=== PATIENT | female | born 1960 | race Caucasian/White ===

== ENCOUNTER → 2018-07-24 | Outpatient (CLI) | payer BC ==
[~2018-07-24] MED LIST: HCT25T PO; KETO-22 PO; METO100T PO; MULT-963 PO; VIT B12 PO; VIT1TABL93 PO
--- NOTE | 2018-07-24 20:24 | Diagnostic Imaging Report ---
EXAMINATION: Sacroiliac Joints. INDICATION: Pain. Three views were obtained. There are no prior studies available for comparison. FINDINGS: There is no fracture, dislocation, or acute bony abnormality evident. On the AP view there is a vague linear lucency extending obliquely through the left sacrum. This is not evident on the oblique view and consequently more likely secondary to superimposition than to a fracture. There is mild symmetrical sclerosis of the sacroiliac joints. The soft tissues are unremarkable. IMPRESSION: 1. There is no evidence for an acute bony abnormality. 2. If there is clinical concern regarding a sacral insufficiency fracture, then MRI would be recommended for further evaluation. Dictated by: Dictated on workstation # [id number]
--- NOTE | 2018-07-24 20:27 | Diagnostic Imaging Report ---
EXAMINATION: Sacrum and Coccyx. INDICATION: Back pain. AP and lateral views were obtained. There are no prior studies available for comparison. FINDINGS: The lateral view does show mild deformity of the lower sacrum. Most likely, this is a sequela of prior trauma. There is a linear lucency extending obliquely over the left sacrum on the AP view. This finding was also present on the sacroiliac study performed in conjunction with this exam; however, this finding did not persist on the oblique views and consequently was felt to be unlikely related to a fracture. There is no fracture or acute bony abnormality noted. Otherwise, there is mild symmetrical sclerosis of the sacroiliac joints. The soft tissues are unremarkable. IMPRESSION: There is no acute bony abnormality identified with certainty. If clinical concern regarding an underlying abnormality persists, then MRI would be recommended for further study. Dictated by: Dictated on workstation # [id number]
--- NOTE | 2018-07-24 20:39 | Diagnostic Imaging Report ---
INDICATION: Back pain, pelvic pain, symptoms 6 months in duration have been worsening in severity with no known discrete injury. Lumbar vertebral body heights are maintained. The alignment is anatomic. There is mid to lower lumbar hypertrophic facet arthrosis. The intervertebral disc space is relatively well maintained aside from mild narrowing at the L5-S1 level. Degenerative changes across the SI joints bilaterally without ankylosis. IMPRESSION: Lower lumbar facet arthrosis and mild lumbosacral junction spondylosis with no acute appearing abnormality or malalignment. SI joint arthritis noted. Dictated by: Dictated on workstation # [id number]
== END ==
LOC: RAD 13:27
PROVIDERS: ATTEND Internal Medicine
DX: M47.817 Spondylosis without myelopathy or radiculopathy, lumbosacral region (principal); M53.3 Sacrococcygeal disorders, not elsewhere classified
CPT/HCPCS: 72100; 72202; 72220

== ENCOUNTER → 2018-08-24 | Outpatient (CLI) | payer BC ==
--- NOTE | 2018-08-24 15:15 | Diagnostic Imaging Report ---
PROCEDURE: MRI lumbar spine. INDICATION: Low back pain with pelvic pain for couple of years. TECHNIQUE: Multiplanar and multisequence noncontrast magnetic resonance imagine was performed of the lumbar spine. CORRELATION STUDY: None. FINDINGS: There is normal alignment and curvature of the lumbar spine. The lumbar vertebral body heights are maintained and without geographic lesion. The conus appears unremarkable. L5-S1: Slight loss of disc space height. There is broad-based disc bulge. Asymmetric disc and osteophyte extension into the foramina with bilateral foraminal narrowing, left greater than right. On the left, there is slight abutment of the exiting nerve root. Mild ligamentum hypertrophy with mild trefoil-type spinal canal configuration. L4-L5: Mild ligamentum hypertrophy with very mild trefoil-type spinal canal configuration. Mild loss of disc space height and intrasubstance signal intensity. There is slight right foraminal narrowing with minimal abutment of the exiting nerve root. Left foramina maintained and unremarkable., L3-L4: Unremarkable. L2-L3: Unremarkable. L1-L2: Unremarkable. Prominent left peripelvic renal cysts. IMPRESSION: 1. Degenerative disc disease along with ligamentum hypertrophy. There are resultant areas of foraminal narrowing at the L4-L5 and L5-S1 levels. The foraminal stenosis is fairly mild, however there is some encroachment and abutment of the exiting nerve roots. Dictated by: Dictated on workstation # [id number]
--- NOTE | 2018-08-24 20:08 | Diagnostic Imaging Report ---
EXAMINATION: Magnetic resonance imaging of the pelvis and bilateral hips without contrast. DATE: August 24, 2018. COMPARISON: Radiographs of the sacrum, July 24, 2018. INDICATION: 58-year-old female, low back and pelvic pain. TECHNIQUE: Magnetic Resonance Imaging sequences were performed of the pelvis and bilateral hips without contrast. TENDONS AND MUSCLES: The gluteus adam muscles and their origins and insertions are intact bilaterally. The tendons and muscles of the greater trochanter - gluteus minimus, piriformis and gluteus medius - are intact bilaterally. Both common hamstring attachments on the ischial tuberosities are intact and the extensor muscles of the thigh are intact. The visualized portions of the flexors and adductor muscles of the thigh and their attachments on the pelvis and hips are intact. Both iliopsoas and iliacus muscles are intact. The bilateral iliopsoas tendons are intact. HIPS AND SACROILIAC JOINTS: The contours of the femoral heads and acetabuli are smooth and symmetric. There is no fluid-filled labral tear or paralabral cyst. There is no hip joint effusion. The sacroiliac joints are unremarkable. LUMBAR SPINE: The visible portions of the lumbar spine are unremarkable on limited assessment. BONE: The bones all have normal configuration. The bone marrow signal is within normal limits. Specifically, negative for fracture, osteomyelitis, osteonecrosis or marrow replacing process. BURSAE AND SOFT TISSUES: The bursae and soft tissues surrounding the pelvis and hips are within normal limits. IMPRESSION: 1. Intact muscles and tendons. 2. No acute fracture, bone contusion or evidence of osteonecrosis. No concerning focal bone lesion. 3. Unremarkable appearance of the hip joints. Dictated by: Dictated on workstation # [id number]
== END ==
LOC: RAD 13:36
PROVIDERS: ATTEND Orthopaedic Surgery Orthopaedic Surgery of the Spine
DX: M48.07 Spinal stenosis, lumbosacral region (principal); M51.36 Other intervertebral disc degeneration, lumbar region; R10.2 Pelvic and perineal pain
CPT/HCPCS: 72148; 72195

== ENCOUNTER 2018-10-12 13:42 | Outpatient (RCR) | payer BC | END 2018-10-31 08:25 | disposition home or self-care (01) | PROVIDERS: ATTEND Orthopaedic Surgery Orthopaedic Surgery of the Spine | DX: M54.5 Low back pain (principal) ==

== ENCOUNTER 2019-05-01 10:15 | Outpatient (CLI) | payer BC ==
[~2019-05-01] VITALS: Ht 165.1 cm; Wt 76.4 kg
[2019-05-01] MEDS ORDERED: ESOM20CA PO (10:38)
[2019-05-01] MEDS ORDERED: ACET-2650 PO (10:38)
[2019-05-01] MEDS ORDERED: MULT1TAB69 PO (10:38)
[2019-05-01] MEDS ORDERED: OMG1KC PO (10:38)
[2019-05-01] MEDS ORDERED: METO100T12 PO (10:38)
[2019-05-01] MEDS ORDERED: CYAN250010 PO (10:38)
[2019-05-01] MEDS ORDERED: HYDR25TA4 PO (10:38)
== END 2019-05-01 10:39 | disposition home or self-care (01) ==
LOC: PREOP 10:15
PROVIDERS: ATTEND Internal Medicine
DX: Z01.818 Encounter for other preprocedural examination (principal)

== ENCOUNTER 2019-05-03 08:28 | Day surgery (SDC) | payer BC ==
--- NOTE | 2019-04-30 10:45 | HISTORY AND PHYSICAL ---
DATE OF SERVICE: COLONOSCOPY HISTORY AND PHYSICAL DATE OF ADMISSION: 05/03/2019. HISTORY OF PRESENT ILLNESS: The patient is a 59-year-old white female referred by Dr. Marquez for screening colonoscopy. She is deemed to be of higher than average risk as her mother was diagnosed with colon cancer in her early 70s. There is also family history for breast cancer in several second-degree relatives. She underwent her first colonoscopy a little over 6 years ago, which revealed no evidence for neoplasia. She reports that she feels well, has had no bowel habit change. Denies melena or bright red blood per rectum, abdominal pain or change in weight. 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 MEDICATIONS ON ADMISSION: Include hydrochlorothiazide 25 mg daily, metoprolol 100 mg daily taken for palpitations. Nexium 20 mg daily for reflux. Fish oil 1000 mg daily and Tylenol Arthritis as well as 1000 mcg of B12 orally. PAST SURGICAL HISTORY: Significant for past history of cholecystectomy and a transvaginal hysterectomy with oophorectomy for benign reasons. 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 PHYSICAL EXAMINATION: GENERAL: Reveals a pleasant white female in no acute distress. VITAL SIGNS: Blood pressure 138/86, heart rate 58 and regular. HEENT: Unremarkable. NECK: No JVD. CHEST: Clear. CARDIOVASCULAR: Regular rate and rhythm without murmur, S3 or S4. ABDOMEN: Soft, supple without mass, organomegaly or tenderness. No bruits are noted. No evidence for abdominal aortic aneurysm to palpation is noted. EXTREMITIES: Reveal no cyanosis, clubbing or edema. ASSESSMENT AND PLAN: The patient was set up for surveillance colonoscopy on 05/03/2019. Prep instructions with MiraLax based prep were given. This worked for her last time and she had problems with the Suprep kit, nausea with her second morning dose in the past. I thank you for the referral. Job ID: [id number] DocumentID: [id number] Dictated Date: 04/30/2019 10:31:32 Is Support Analyst Date: 04/30/2019 10:43:49 Dictated By: ARMEN MCKENNA MD
[2019-05-03] VITALS (11 sets, daily range): BP systolic 95–151; BP diastolic 51–95
[~2019-05-03] VITALS: Ht 165.1 cm; Wt 76.4 kg
[~2019-05-03 08:28] MED LIST changes: +ACET-2650 PO; +CYAN250010 PO; +ESOM20CA PO; +HYDR25TA4 PO; +METO100T12 PO; +MULT1TAB69 PO; +OMG1KC PO
[2019-05-03] MEDS ORDERED: D5 LR IV SOLUTION 1,000 ML IV ONE (08:34)
--- OUTSIDE RECORDS SUMMARY | 2019-05-03 08:39 | XMS REPORT | Continuity of Care Document ---
Author Organization Unknown Address Unknown Phone Unavailable Allergies Active Description Code Type Severity Reaction Onset Reported/Identified Relationship to Patient Clinical Status Yes clindamycin [id number] Drug Aller gy Unknown N/A 01/24/2013 Yes levofloxacin [id number] Drug Allergy Unknown N/A 01/24/2013 Medications There is no data. Problems Date Dx Coded Attending Type Code Diagnosis Diagnosed By SHEILA RYAN, DANICA Son Ot M54.5 LOW BACK PAIN 07/29/2018 THAO BARRERA DO Ot M47.81 7 SPONDYLS W/O MYELOPATHY OR RADICULOPATHY 07/29/2018 THAO BARRERA DO Ot M53.3 SACROCOCCYGEAL DISORDERS, NOT ELSEWHERE 08/10/2018 THAO BARRERA DO Ot M47.81 7 SPONDYLS W/O MYELOPATHY OR RADICULOPATHY 08/10/2018 THAO BARRERA DO Ot M53.3 SACROCOCCYGEAL DISORDERS, NOT ELSEWHERE 08/23/2018 THAO BARRERA DO Ot M47.81 7 SPONDYLS W/O MYELOPATHY OR RADICULOPATHY 08/23/2018 THAO BARRERA DO Ot M53.3 SACROCOCCYGEAL DISORDERS, NOT ELSEWHERE 09/28/2018 DANICA SOSA MD Ot M48.0 7 SPINAL STENOSIS, LUMBOSACRAL REGION 09/28/2018 DANICA SOSA MD Ot M51.3 6 OTHER INTERVERTEBRAL DISC DEGENERATION, 09/28/2018 DANICA SOSA MD Ot R10.2 PELVIC AND PERINEAL PAIN 10/25/2018 DANICA SOSA MD, Ot M54.5 LOW BACK PAIN 05/01/2019 ARMEN MCKENNA MD Ot Z01.818 ENCOUNTER FOR OTHER PREPROCEDURAL EXAMIN 05/01/2019 ARMEN MCKENNA MD Ot Z01.818 ENCOUNTER FOR OTHER PREPROCEDURAL EXAMIN 05/01/2019 ARMEN MCKENNA MD Ot Z01.818 ENCOUNTER FOR OTHER PREPROCEDURAL EXAMIN Procedures There is no data. Results There is no data. Encounters ACCT No. Visit Date/Time Discharge Status Pt. Type Provider Facility Loc./Unit Complaint [id number] 05/01/2019 10:15:00 020 10:39:00 DIS Outpatient ARMEN MCKENNA MD [facility] PREOP COLONOSCOPY [id number] 10/12/2018 13:42:00 019 08:25:00 DIS Outpatient DANICA SOSA MD [facility] REHAB LUMBAGO; SI JOINT DYSFU NCTION [id number] 08/24/2018 13:36:00 23:59:59 CLS Outpatient DANICA SOSA MD [facility] RAD LUMBAGO,PELVIS PAIN [id number] 07/24/2018 13:27:00 23:59:59 CLS Outpatient THAO BARRERA DO [facility] RAD SI JOINT PAIN [id number] 01/25/2013 07:25:00 013 11:45:00 DIS Outpatient [id number] 01/24/2013 11:29:00 013 23:59:59 CLS Outpatient [id number] 05/03/2019 09:00:00 P EN PreadARMEN Pate MD [facility] ENDO SCREENING
[2019-05-03] MEDS ORDERED: D5 LR IV SOLUTION 1,000 ML IV STA (09:10)
[2019-05-03] MEDS ORDERED: fentaNYL INJECTION 100 MCG/2 ML AMP IVP ONE (09:15)
[2019-05-03] MEDS ORDERED: MIDAZOLAM 5 MG/5 ML (VERSED) VIAL IV PRN (09:15)
[2019-05-03] MEDS ORDERED: LIDOCAINE JELLY 2% 6 ML SYRINGE MM PRN (09:15)
[2019-05-03] MEDS ORDERED: fentaNYL INJECTION 100 MCG/2 ML AMP ONE (09:42)
[2019-05-03] MEDS ORDERED: LIDOCAINE JELLY 2% 6 ML SYRINGE ONE (09:43)
[2019-05-03] MEDS ORDERED: MIDAZOLAM 5 MG/5 ML (VERSED) VIAL ONE (09:43)
--- NOTE | 2019-05-03 10:26 | Pre-Op Note & Conscious Sedat ---
Pre-Operative Progress Note H&P Reviewed The H&P was reviewed, patient examined and no changes noted. Date H&P Reviewed: May 03, 2019 Time H&P Reviewed: 09:05 Conscious Sedation Pre-Proced ASA Score 1 For ASA 3 and 4: Consider anesthesia and medical clearance. Also, for patients with a history of failed moderate sedation consider anesthesia. Airway Lungs Heart ASA score ASA 1: a normal healthy patient ASA 2: a patient with a mild systemic disease (mid diabetes, controlled hypertension, obesity ASA 3: a patient with a severe systemic disease that limits activity (angina, COPD, prior Myocardial infarction) ASA 4: a patient with an incapacitating disease that is a constant threat to life (CHF, renal failure) ASA 5: a moribund patient not expected to survive 24 hrs. (ruptured aneurysm) ASA 6: a declared brain- patient whose organs are being harvested. For emergent operations, add the letter E after the classification Mallampati Classification Grade 2 Sedation Plan Analgesia, Amnesia, Plan communicated to team members, Discussed options with patient/fam, Discussed risks with patient/fam The patient is an appropriate candidate to undergo the planned procedure, sedation, and anesthesia. The patient immediately re-assessed prior to indication. ARMEN MCKENNA MD May 03, 2019 10:26
--- NOTE | 2019-05-03 15:28 | OPERATIVE REPORT ---
DATE OF SERVICE: COLONOSCOPY SUMMARY INDICATION FOR THE PROCEDURE: Screening colonoscopy. DESCRIPTION OF PROCEDURE: The patient was placed in the left lateral decubitus position. Prior to undergoing colonoscopy, digital rectal evaluation was performed. Anal sphincter tone was normal and the perianal reflexes intact. No abnormalities noted on digital inspection of the anal canal or distal rectal vault. The colonoscope was then inserted into the rectum and under direct visualization advanced to the cecum. The cecum was identified by identification of ileocecal valve and cecal strap as well as appendiceal orifice. Photographic documentation was obtained. Careful inspection was made as colonoscope was withdrawn. The quality of the prep was fair. FINDINGS: There was no evidence for internal or external hemorrhoids and the rectum was unremarkable. There is postural hypertrophy and a moderate number of small to medium size sigmoid diverticulum were present with no other sigmoid colonic abnormalities being appreciated. There is no evidence for acute diverticulitis. The descending colon, splenic flexure, transverse colon, hepatic flexure, ascending colon and cecum were unremarkable. ASSESSMENT: Mild to moderate diverticular disease confined to the sigmoid colon was present without evidence for diverticulitis. This is an otherwise normal colonoscopy to the cecum. Considering family history of colon cancer in her mother diagnosed in her 70s, would advocate repeat surveillance colonoscopy in 5 years. Job ID: [id number] DocumentID: [id number] Dictated Date: 05/03/2019 11:01:06 Patient Portal Representative Date: 05/03/2019 15:26:50 Dictated By: ARMEN MCKENNA MD [facility]
== END 2019-05-03 09:00 | disposition home or self-care (01) ==
LOC: ENDO 08:28
PROVIDERS: ATTEND Internal Medicine
DX: Z12.11 Encounter for screening for malignant neoplasm of colon (principal); K57.30 Diverticulosis of large intestine without perforation or abscess without bleeding; Z80.0 Family history of malignant neoplasm of digestive organs; Z85.3 Personal history of malignant neoplasm of breast; I10 Essential (primary) hypertension; M47.816 Spondylosis without myelopathy or radiculopathy, lumbar region; Z79.899 Other long term (current) drug therapy

== ENCOUNTER → 2022-01-11 | Outpatient (CLI) | payer BC ==
[~2022-01-11] MED LIST changes: +MULT-567 PO; -MULT1TAB69 PO
--- NOTE | 2022-01-11 14:57 | Diagnostic Imaging Report ---
INDICATION: Postmenopausal screening COMPARISON: 10/08/2007 FINDINGS: AP Spine L1-L4: [BMD (g/cm2): 1.024] [T-Score: -1.5] [Z-Score: -0.2] [BMD Previous: 1.196] [BMD % Change: -14.4] LT Hip Neck: [BMD (g/cm2): 0.916] [T-Score: -0.9] [Z-Score: 0.4] LT Hip Total: [BMD (g/cm2):0.984] [T-Score:-0.2] [Z-Score: 0.7] [BMD Previous: 1.034] [BMD % Change: -4.8] RT Hip Neck: [BMD (g/cm2):0.928] [T-Score:-0.8] [Z-Score:0.4] RT Hip Total: [BMD (g/cm2):0.966] [T-score:-0.3] [Z-Score:0.6] [BMD Previous:1.025] [BMD % Change:-5.8] *Indicates significant change from prior examination based on 95% confidence level. World Health Organization criteria for BMD interpretation classify patients as Normal (T-score at or above -1.0), Osteopenic (T-score between -1.0 and -2.5) or Osteoporotic (T-score at or below -2.5). LIMITATIONS AND MODIFICATION: None. FRACTURE RISK (FRAX SCORE): The ten year probability of (%): Major Osteoporotic Fracture: [na] Hip Fracture: [na] IMPRESSION: 1. Osteopenia (Low bone mass). 2. Bone mineral density has decreased by a statistically significant amount, as detailed above. 3. See below National Osteoporosis Foundation guidelines on when to potentially initiate pharmacologic therapy. Based on the National Osteoporosis Foundation Guidelines, pharmacologic treatment should be initiated in any of the following, unless clinical conditions suggest otherwise: * Any patient with prior fragility fracture of the hip or vertebrae. A spine fracture indicates 5X risk for subsequent spine fracture and 2X risk for subsequent hip fracture. * Osteoporosis (T-score <-2.5). * Postmenopausal women and men age 50 and older with low bone mass/osteopenia (T-score between -1.0 and -2.5) by DXA and 10-year major osteoporotic fracture greater than 20% or a 10-year probability of hip fracture greater than 3%. These fracture risks are supplied above in the FRAX score, if applicable. * Clinician judgement and/or patient preferences may indicate treatment for people with 10-year fracture probabilities above or below these levels. Dictated by: Dictated on workstation # [id number]
== END ==
LOC: RAD 13:47
PROVIDERS: ATTEND Internal Medicine
DX: M85.80 Other specified disorders of bone density and structure, unspecified site (principal); Z78.0 Asymptomatic menopausal state
CPT/HCPCS: 77063; 77067; 77080